=== PATIENT | male | born 1985 | race Caucasian/White ===

== ENCOUNTER 2017-03-16 11:29 | Emergency (ER) | payer BC, OTHER ==
--- NOTE | 2017-03-16 12:10 | ER Document Report ---
ED Medical Screen (RME) - General Chief Complaint: Testicular Pain Stated Complaint: TESTICLE PROBLEM Time Seen by Provider: 03/16/17 12:07 Mode of Arrival: Ambulatory Information source: Patient - pt s/p vasectomy 2 months ago with R testicular pain starting yesterday -- got better temporarily but had exacerbation of pain and swelling this am. TRAVEL OUTSIDE OF THE [place] IN LAST 30 DAYS: No - Related Data Allergies/Adverse Reactions: Penicillins Allergy (Verified 03/16/17 11:58) Anaphylaxis Past Medical History - Past Medical History Cardiac Medical History: Reports: Hx Hypertension Renal/ Medical History: Denies: Hx Peritoneal Dialysis Skin Medical History: Reports Hx MRSA Physical Exam - Vital signs Vitals: Temp Pulse Resp BP Pulse Ox 98.3 F 94 18 151/91 H 100 03/16/17 11:58 03/16/17 11:58 03/16/17 11:58 03/16/17 11:58 03/16/17 11:58 Course - Vital Signs Vital signs: Temp Pulse Resp BP Pulse Ox 98.3 F 94 18 151/91 H 100 03/16/17 11:58 03/16/17 11:58 03/16/17 11:58 03/16/17 11:58 03/16/17 11:58
[2017-03-16 12:39] LABS: APPEARANCE,URINE CLEAR; BILIRUBIN,URINE NEGATIVE (NEGATIVE); GLUCOSE, URINE NEGATIVE (NEGATIVE); KETONES,URINE NEGATIVE (NEGATIVE); LEUKOCYTE ESTERASE,URINE NEGATIVE (NEGATIVE); NITRITE,URINE NEGATIVE (NEGATIVE); PROTEIN,URINE NEGATIVE (NEGATIVE); URINE SPECIFIC GRAVITY 1.017; UROBILINOGEN,URINE NEGATIVE mg/dL (<2.0)
--- NOTE | 2017-03-16 14:08 | ER Document Report ---
ED GI/ - General Chief Complaint: Testicular Pain Stated Complaint: TESTICLE PROBLEM Time Seen by Provider: 03/16/17 12:07 Mode of Arrival: Ambulatory Notes: The patient is a 32-year-old male, past medical history vasectomy 2 months ago, presents with 1 day of right testicular pain and swelling. He initially said the pain improved, but it worsened just prior to arrival. He denies dysuria, penile discharge, flank pain, nausea, vomiting or rash. TRAVEL OUTSIDE OF THE [place] IN LAST 30 DAYS: No - Related Data Allergies/Adverse Reactions: Penicillins Allergy (Verified 03/16/17 11:58) Anaphylaxis Past Medical History - General Information source: Patient - pt s/p vasectomy 2 months ago with R testicular pain starting yesterday -- got better temporarily but had exacerbation of pain and swelling this am. - Social History Smoking Status: Never Smoker Family History: Reviewed & Not Pertinent Patient has suicidal ideation: No Patient has homicidal ideation: No - Past Medical History Cardiac Medical History: Reports: Hx Hypertension Renal/ Medical History: Denies: Hx Peritoneal Dialysis Skin Medical History: Reports Hx MRSA Review of Systems - Review of Systems Notes: REVIEW OF SYSTEMS: CONSTITUTIONAL: -fevers, -chills EENT: -eye pain, -difficulty swallowing, -nasal congestion CARDIOVASCULAR:-chest pain, -syncope. RESPIRATORY: -cough, -SOB GASTROINTESTINAL: +right testicular pain and swelling, -abdominal pain, -nausea , -vomiting, -diarrhea GENITOURINARY: -dysuria, -hematuria MUSCULOSKELETAL: -back pain, -neck pain SKIN: -rash or skin lesions. HEMATOLOGIC: -easy bruising or bleeding. LYMPHATIC: -swollen, enlarged glands. NEUROLOGICAL: -altered mental status or loss of consciousness, -headache, - neurologic symptoms PSYCHIATRIC: -anxiety, -depression. ALL OTHER SYSTEMS REVIEWED AND NEGATIVE. Physical Exam - Vital signs Vitals: Temp Pulse Resp BP Pulse Ox 98.3 F 94 18 151/91 H 100 03/16/17 11:58 03/16/17 11:58 03/16/17 11:58 03/16/17 11:58 03/16/17 11:58 - Notes Notes: PHYSICAL EXAMINATION: GENERAL: Well-appearing, well-nourished and in no acute distress. HEAD: Atraumatic, normocephalic. EYES: Pupils equal round and reactive to light, extraocular movements intact, sclera anicteric, conjunctiva are normal. ENT: nares patent, oropharynx clear without exudates. Moist mucous membranes. NECK: Normal range of motion, supple without lymphadenopathy LUNGS: Breath sounds clear to auscultation bilaterally and equal. No wheezes rales or rhonchi. HEART: Regular rate and rhythm without murmurs ABDOMEN: Soft, nontender, normoactive bowel sounds. No guarding, no rebound. No masses appreciated. : Normal lie of testicles. Mild tenderness over right epididymis. No lesions or penile discharge. EXTREMITIES: Normal range of motion, no pitting or edema. No cyanosis. NEUROLOGICAL: Cranial nerves grossly intact. Normal speech, normal gait. Normal sensory and motor exams. PSYCH: Normal mood, normal affect. SKIN: Warm, Dry, normal turgor, no rashes or lesions noted. Course - Re-evaluation Re-evalutation: No evidence of torsion on ultrasound. He has a right epidermal cyst on ultrasound. Instructed him to continue anti-inflammatories and follow-up with his urologist. - Vital Signs Vital signs: Temp Pulse Resp BP Pulse Ox 98.3 F 94 18 151/91 H 100 03/16/17 11:58 03/16/17 11:58 03/16/17 11:58 03/16/17 11:58 03/16/17 11:58 - Diagnostic Test Radiology reviewed: Image reviewed, Reports reviewed Radiology results interpreted by me: Scrotal US: Right epidermal cyst Discharge - Discharge Clinical Impression: Epididymal cyst Condition: Stable Disposition: HOME, SELF-CARE Additional Instructions: Testicular Pain Your ultrasound shows evidence of a cyst on your epididymis. Pain in the testicle can be caused by many different problems, including viral infections of the testicle, urinary tract infection, kidney stones, inflammation of the epididymis (the sac behind the testicle), hernia, dilated veins in the scrotum, or subtle injury. The most serious causes of testicular pain are tumor or twisting of the testicle. Rest. Gentle warmth may help with symptoms. It's usually helpful to wear underwear that gives good support to the testicles ("briefs" instead of "boxers "). Call the doctor or return if there is sudden worsening of pain, fever, vomiting, testicle swelling, or discoloration of the scrotum. Prescriptions: Acetaminophen with Codeine [Tylenol #3 Tablet] 1 each PO Q4HP PRN #10 tablet PRN Reason: Referrals: ALLYSON TRIANA MD [ACTIVE STAFF] - Follow up as needed
[2017-03-16 14:38] VITALS: BP 143/91
== END 2017-03-16 14:40 | disposition home or self-care (01) ==
LOC: ER 11:29
DX: N50.3 Cyst of epididymis (principal); I10 Essential (primary) hypertension; Z98.52 Vasectomy status; Z87.892 Personal history of anaphylaxis; Z88.0 Allergy status to penicillin; Z86.14 Personal history of Methicillin resistant Staphylococcus aureus infection
CPT/HCPCS: 76870; 81001; 93976; 99284